=== PATIENT | male | born 1940 | race American Indian/Alaskan Native ===

== ENCOUNTER 2018-11-18 16:39 | Inpatient (IN) | payer MEDICARE ==
[2018-11-18] MEDS ORDERED: NACL 0.9% 1000 ML 1,000 ML IV ONE ×2 (17:34→21:35)
--- NOTE | 2018-11-18 17:37 | Emergency Department Report ---
ED General Adult HPI - General Stated complaint: HYPOTENSION Time Seen by Provider: 11/18/18 17:34 Source: patient, family, EMS Mode of arrival: Stretcher Limitations: No Limitations - History of Present Illness Initial comments: Patient is a 78-year-old male that presents emergency room for low blood pressure. Patient states he was at his eye doctor and his blood pressure was low. Patient states that when the blood pressure slowly felt a little bit weak and had a syncopal episode. Patient states his syncopal episode was brief. Patient states his blood pressure was low but return to normal by the time EMS arrived . Patient denies chest pain shortness of breath. Patient denies any symptoms at this time. Patient denies dizziness. Patient denies blurry vision. Patient denies headache. Patient states his blood pressure at the eye doctor was on recheck was 86/62. -: Sudden Associated Symptoms: syncope, weakness. denies: confusion, chest pain, cough, diaphoresis, fever/chills, headaches, loss of appetite, nausea/vomiting, rash, seizure, shortness of breath - Related Data Allergies Allergy/AdvReac Type Severity Reaction Status Date / Time No Known Allergies Allergy Unverified 11/18/18 18:22 ED Review of Systems ROS: Stated complaint: HYPOTENSION Other details as noted in HPI Constitutional: denies: chills, fever Eyes: denies: eye pain, eye discharge, vision change ENT: denies: ear pain, throat pain Respiratory: denies: cough, shortness of breath, wheezing Cardiovascular: denies: chest pain, palpitations Endocrine: no symptoms reported Gastrointestinal: denies: abdominal pain, nausea, diarrhea Genitourinary: denies: urgency, dysuria Musculoskeletal: denies: back pain, joint swelling, arthralgia Skin: denies: rash, lesions Neurological: weakness. denies: headache, paresthesias Psychiatric: denies: anxiety, depression Hematological/Lymphatic: denies: easy bleeding, easy bruising ED Past Medical Hx - Past Medical History Previous Medical History?: Yes Hx Diabetes: Yes Hx Arthritis: Yes Additional medical history: bph, cataracts - Surgical History Past Surgical History?: No - Family History Family history: no significant - Social History Smoking Status: Never Smoker Substance Use Type: None ED Physical Exam - General Limitations: No Limitations General appearance: alert, in no apparent distress - Head Head exam: Present: atraumatic, normocephalic - Eye Eye exam: Present: normal appearance, PERRL Pupils: Present: normal accommodation - ENT ENT exam: Present: mucous membranes moist - Neck Neck exam: Present: normal inspection - Respiratory Respiratory exam: Present: normal lung sounds bilaterally. Absent: respiratory distress - Cardiovascular Cardiovascular Exam: Present: regular rate, normal rhythm. Absent: systolic murmur, diastolic murmur, rubs, gallop - GI/Abdominal GI/Abdominal exam: Present: soft, normal bowel sounds - Rectal Rectal exam: Present: deferred - Extremities Exam Extremities exam: Present: normal inspection - Back Exam Back exam: Present: normal inspection - Neurological Exam Neurological exam: Present: alert, oriented X3 - Psychiatric Psychiatric exam: Present: normal affect, normal mood - Skin Skin exam: Present: warm, dry, intact, normal color. Absent: rash ED Course Vital Signs 11/18/18 11/18/18 11/18/18 17:17 17:25 17:30 Temperature 98.5 F Pulse Rate 72 74 Respiratory 14 16 Rate Blood Pressure 126/57 126/57 126/57 O2 Sat by Pulse 99 100 98 Oximetry 11/18/18 11/18/18 11/18/18 17:45 18:00 18:16 Temperature Pulse Rate 70 71 80 Respiratory 12 15 19 Rate Blood Pressure 140/61 154/67 154/67 O2 Sat by Pulse 96 97 82 L Oximetry 11/18/18 11/18/18 11/18/18 18:30 18:46 19:00 Temperature Pulse Rate 70 76 74 Respiratory 12 17 14 Rate Blood Pressure 154/67 154/67 142/60 O2 Sat by Pulse 99 99 98 Oximetry 11/18/18 11/18/18 11/18/18 19:15 19:30 20:24 Temperature Pulse Rate 88 81 85 Respiratory 20 11 L 11 L Rate Blood Pressure 134/68 134/68 121/70 O2 Sat by Pulse 97 100 Oximetry 11/18/18 11/18/18 11/18/18 20:30 20:45 21:00 Temperature Pulse Rate 80 81 82 Respiratory 12 16 14 Rate Blood Pressure 167/79 167/71 171/76 O2 Sat by Pulse 97 97 94 Oximetry 11/18/18 11/18/18 11/18/18 21:15 21:30 21:46 Temperature Pulse Rate 84 87 83 Respiratory 14 13 15 Rate Blood Pressure 176/83 169/86 151/71 O2 Sat by Pulse 97 96 94 Oximetry 11/18/18 22:00 Temperature Pulse Rate 87 Respiratory 18 Rate Blood Pressure 157/74 O2 Sat by Pulse 98 Oximetry - Reevaluation(s) Reevaluation #1: Nurses difficulty placing a peripheral IV. Right neck IV placed. See procedure note 11/18/18 19:34 Reevaluation #2: Discussed all results with patient. Patient will be admitted to the hospitalist service. Patient agrees to plan of care. 11/18/18 22:10 - Consultations Consultation #1: Hospitalist consultation for admission. Hospitalist to admit patient. Hospitalist to assume care patient. 11/18/18 22:10 - EJ/Peripheral Line Neck R Time Out Performed: Yes Indications: nurses unable to establis Skin Cleansed in Sterile Fashion: Yes Size: 20 Dressing Placed: Tegaderm, tape Patient Tolerated Procedure: well ED Medical Decision Making - Lab Data Result diagrams: 11/18/18 18:11 11/18/18 18:11 - EKG Data -: EKG Interpreted by Me EKG shows normal: sinus rhythm, axis, intervals, QRS complexes, ST-T waves Rate: normal - Radiology Data Radiology results: report reviewed, image reviewed interpreted by me: Chest x-ray negative. PROCEDURE: CT HEAD/BRAIN WO CON TECHNIQUE: Computerized tomography of the head was performed without contrast material. CT DOSE LENGTH PRODUCT: 1047.9 mGycm HISTORY: syncope COMPARISONS: None . FINDINGS: No CT evidence of intracranial mass, hemorrhage, acute territorial infarction, or hydrocephalus. Intracranial arteries are symmetric in density. There is focal lacunar infarct in the right basal ganglia. Calvarium is intact. Visualized paranasal sinuses and mastoids are aerated. IMPRESSION: No CT evidence of acute abnormality . PROCEDURE: CT ANGIO CHEST TECHNIQUE: Computerized tomographic angiography of the chest was performed after the IV injection of iodinated nonionic contrast including image processing. The image data was postprocessed using 2-dimensional multiplanar reformatted (MPR) and 3-dimensional (MIP and/or volume rendered) techniques. Automated exposure control, adjustment of mA and/or kV according to patient size, or iterative reconstruction dose optimization techniques were utilized. CT DOSE LENGTH PRODUCT: 756.3 mGycm HISTORY: syncope and high d-dimer COMPARISONS: None . FINDINGS: Bilateral pulmonary arteries and their branches demonstrate normal opacification without filling defects. Aorta is of normal caliber without evidence of dissection. Hilar structures are within normal limits. There is no lymphadenopathy. Thyroid Demonstrates normal size and density. Visualized upper abdominal structures are within normal limits. Idiopathic skeletal hyperostosis changes are noted involving the thoracic spine. Vertebral height is normal. Bilateral lungs are free of infiltrates or mass lesions. Pleural spaces are clear. IMPRESSION: No evidence of pulmonary embolism No acute pulmonary process - Medical Decision Making Patient is a 78-year-old male presents emergency room with weakness and syncope and low blood pressure. Patient given fluids in the ER her blood pressure returned to normal. Patient had labs done and it shows acute renal insufficiency as well as elevated troponin and elevated d-dimer. Patient had a CTA due to syncopal episode and elevated d-dimer. CT was negative. Patient had a chest x-ray which was negative. Patient had a head CT which was negative. Patient was admitted to the hospitalist service. - Differential Diagnosis syncope. PE. Weakness. Hypotension. Critical Care Time: Yes Critical care attestation.: If time is entered above; I have spent that time in minutes in the direct care of this critically ill patient, excluding procedure time. Critical Care Time: 45 minutes ED Disposition Clinical Impression: Elevated troponin I level, Elevated d-dimer Syncope Qualifiers: Syncope type: unspecified Qualified Code(s): R55 - Syncope and collapse Hypotension Qualifiers: Hypotension type: unspecified hypotension type Qualified Code(s): I95.9 - Hypotension, unspecified Acute renal failure Qualifiers: Acute renal failure type: unspecified Qualified Code(s): N17.9 - Acute kidney failure, unspecified Disposition: OP ADMIT IP TO THIS HOSP Is pt being admited?: Yes Does the pt Need Aspirin: No Condition: Critical Time of Disposition: 22:10
[2018-11-18 18:40] LABS: Basophils # (Auto) 0.1 K/mm3 (0.0-0.1); Basophils % (Auto) 1.2 % (0.0-1.8); Eosinophils % (Auto) 0.4 % (0.0-4.3); Hematocrit 30.2 % (35.5-45.6); Hemoglobin 10.2 gm/dl (11.8-15.2); Lymphocytes # (Auto) 1.3 K/mm3 (1.2-5.4); Lymphocytes % (Auto) 15.3 % (13.4-35.0); Mean Corpuscular HGB Conc 34 % (32-34); Mean Corpuscular Volume 96 fl (84-94); Monocytes # (Auto) 0.3 K/mm3 (0.0-0.8); Platelet Count 382 K/mm3 (140-440); Red Blood Count 3.15 M/mm3 (3.65-5.03); Red Cell Distribution Width 12.9 % (13.2-15.2)
[2018-11-18 19:04] LABS: Creatine Kinase MB 3.3 ng/mL (0.0-4.0)
[2018-11-18 19:06] LABS: Albumin 3.6 g/dL (3.9-5)
[2018-11-18 19:42] LABS: Chol/HDL Ratio 7.34 %
--- NOTE | 2018-11-18 20:47 | XRay Report ---
PROCEDURE: XR CHEST 1V AP TECHNIQUE: Chest radiograph single view. HISTORY: syncope/ COMPARISONS: None . FINDINGS: Heart: Normal. Mediastinum/Vessels: Normal. Lungs/Pleural space: Normal. Bony thorax: No acute osseous abnormality. Life support devices: None. IMPRESSION: No acute cardiopulmonary abnormality. This document is electronically signed by Abimael Brewster MD., Nov 18 2018 08:45:45 PM ET
--- NOTE | 2018-11-18 21:31 | Cat Scan Report ---
PROCEDURE: CT ANGIO CHEST TECHNIQUE: Computerized tomographic angiography of the chest was performed after the IV injection of iodinated nonionic contrast including image processing. The image data was postprocessed using 2-di mensional multiplanar reformatted (MPR) and 3-dimensional (MIP and/or volume rendered) techniques. Au tomated exposure control, adjustment of mA and/or kV according to patient size, or iterative reconstr uction dose optimization techniques were utilized. CT DOSE LENGTH PRODUCT: 756.3 mGycm HISTORY: syncope and high d-dimer COMPARISONS: None . FINDINGS: Bilateral pulmonary arteries and their branches demonstrate normal opacification without filling defe cts. Aorta is of normal caliber without evidence of dissection. Hilar structures are within normal li mits. There is no lymphadenopathy. Thyroid Demonstrates normal size and density. Visualized upper abdominal structures are within normal limits. Idiopathic skeletal hyperostosis changes are noted involving the thoracic spine. Vertebral h eight is normal. Bilateral lungs are free of infiltrates or mass lesions. Pleural spaces are clear. IMPRESSION: No evidence of pulmonary embolism No acute pulmonary process This document is electronically signed by Abimael Brewster MD., Nov 18 2018 09:29:21 PM ET
[2018-11-18] MEDS ORDERED: NACL 0.9% 1000 ML 1,000 ML ONE (21:32)
[2018-11-18 21:51] LABS: Bilirubin,Urine NEG (Negative); Blood,Urine SM (Negative); Color,Urine Yellow (Yellow); Mucus,Urine FEW /HPF
--- NOTE | 2018-11-18 22:29 | Cat Scan Report ---
PROCEDURE: CT HEAD/BRAIN WO CON TECHNIQUE: Computerized tomography of the head was performed without contrast material. CT DOSE LENGTH PRODUCT: 1047.9 mGycm HISTORY: syncope COMPARISONS: None . FINDINGS: No CT evidence of intracranial mass, hemorrhage, acute territorial infarction, or hydrocephalus. Intr acranial arteries are symmetric in density. There is focal lacunar infarct in the right basal ganglia . Calvarium is intact. Visualized paranasal sinuses and mastoids are aerated. IMPRESSION: No CT evidence of acute abnormality . This document is electronically signed by Mary Frank MD., Nov 18 2018 10:27:48 PM ET
[2018-11-18] MEDS ORDERED: ZOFRAN ONE (22:34)
[2018-11-18] MEDS ORDERED: ZOFRAN IV ONE (22:38)
[2018-11-18] MEDS ORDERED: PERCOCET 5/325 PO PRN (23:14)
[2018-11-18] MEDS ORDERED: SODIUM CHLORIDE FLUSH SYRINGE 10 ML IV PRN (23:14)
[2018-11-18] MEDS ORDERED: TYLENOL PO PRN (23:14)
[2018-11-18] MEDS ORDERED: APRESOLINE IV PRN (23:17)
[2018-11-18] MEDS ORDERED: D50W (25GM) Syringe IV PRN (23:19)
--- NOTE | 2018-11-18 23:40 | History and Physical Report ---
History of Present Illness Date of examination: 11/18/18 Date of admission: 11/18/18 23:14 Chief complaint: Syncope History of present illness: Patient is a 78-year-old -[place]ish male with history of hypertension and DM2 who presented to the ED on account of his syncopal episode. Pt stated that he went for his eye clinic appointment and while he was seated down, it was reported that he passed out. He has positive history of nausea with vomiting 2 episodes. He denied chest pain, palpitation, shortness of breath, cough, fever, chills, sore throat, runny nose or congestion, leg swelling, orthopnea or PND. No abdominal pain, constipation, diarrhea, dysuria or frequency. No headaches or lightheadedness. No known prior history of presenting complaint. Past History Past Medical History: arthritis, diabetes, hypertension, other (BPH, prostate cancer status post prostatectomy and radiation) Past Surgical History: appendectomy, Other (prostatectomy) Social history: no significant social history (he denies tobacco, alcohol or illicit drug use) Family history: other (reviewed and noncontributory to syncope) Medications and Allergies Allergies Allergy/AdvReac Type Severity Reaction Status Date / Time No Known Allergies Allergy Unverified 11/18/18 18:22 Active Meds: Active Medications Acetaminophen (Tylenol) 650 mg PO Q4H PRN PRN Reason: Pain MILD(1-3)/Fever >100.5/SAMANIEGO Amlodipine Besylate (Norvasc) 10 mg PO QDAY [facility] Atorvastatin Calcium (Lipitor) 40 mg PO QHS [facility] Dextrose (D50w (25gm) Syringe) 50 ml IV PRN PRN PRN Reason: Hypoglycemia Docusate Sodium (Colace) 100 mg PO BID [facility] Heparin Sodium (Porcine) (Heparin) 5,000 unit SUB-Q Q12HR [facility] Hydralazine HCl (Apresoline) 75 mg PO Q8HR [facility] Hydralazine HCl (Apresoline) 10 mg IV Q4H PRN PRN Reason: Blood Pressure Sodium Chloride (Nacl 0.9% 1000 Ml) 1,000 mls @ 100 mls/hr IV DIRECT [facility] Insulin Glargine (Lantus) 15 units SUB-Q DAILY [facility] Insulin Human Lispro (Humalog) 0 unit SUB-Q ACHS [facility]; Protocol Ondansetron HCl (Zofran) 4 mg IV Q8H PRN PRN Reason: Nausea And Vomiting Oxycodone/Acetaminophen (Percocet 5/325) 1 tab PO Q6H PRN PRN Reason: Pain, Moderate (4-6) Sodium Chloride (Sodium Chloride Flush Syringe 10 Ml) 10 ml IV BID [facility] Sodium Chloride (Sodium Chloride Flush Syringe 10 Ml) 10 ml IV PRN PRN PRN Reason: LINE FLUSH Review of Systems All systems: negative (except as documented in the HPI, 14 point system reviewed were negative) Exam - Constitutional Vitals: Temp Pulse Resp BP Pulse Ox 98.5 F 87 18 157/74 98 11/18/18 17:25 11/18/18 22:00 11/18/18 22:00 11/18/18 22:00 11/18/18 22:00 General appearance: Present: no acute distress - EENT Eyes: Present: PERRL, EOM intact ENT: hearing intact, clear oral mucosa - Neck Neck: Present: supple, normal ROM - Respiratory Respiratory effort: normal Respiratory: bilateral: CTA - Cardiovascular Rhythm: regular Heart Sounds: Present: S1 & S2 - Extremities Extremities: pulses symmetrical, No edema - Abdominal General gastrointestinal: Present: soft, non-tender, normal bowel sounds Male genitourinary: Present: deferred - Integumentary Integumentary: Present: clear, warm, dry - Musculoskeletal Musculoskeletal: strength equal bilaterally - Psychiatric Psychiatric: appropriate mood/affect, intact judgment & insight - Neurologic Neurologic: CNII-XII intact Results - Labs CBC & Chem 7: 11/18/18 18:11 11/18/18 18:11 Labs: Laboratory Last Values WBC 8.6 K/mm3 (4.5-11.0) 11/18/18 18:11 RBC 3.15 M/mm3 (3.65-5.03) L 11/18/18 18:11 Hgb 10.2 gm/dl (11.8-15.2) L 11/18/18 18:11 Hct 30.2 % (35.5-45.6) L 11/18/18 18:11 MCV 96 fl (84-94) H 11/18/18 18:11 MCH 32 pg (28-32) 11/18/18 18:11 MCHC 34 % (32-34) 11/18/18 18:11 RDW 12.9 % (13.2-15.2) L 11/18/18 18:11 Plt Count 382 K/mm3 (140-440) 11/18/18 18:11 Lymph % (Auto) 15.3 % (13.4-35.0) 11/18/18 18:11 [place] % (Auto) 4.0 % (0.0-7.3) 11/18/18 18:11 Eos % (Auto) 0.4 % (0.0-4.3) 11/18/18 18:11 Baso % (Auto) 1.2 % (0.0-1.8) 11/18/18 18:11 Lymph # 1.3 K/mm3 (1.2-5.4) 11/18/18 18:11 [place] # 0.3 K/mm3 (0.0-0.8) 11/18/18 18:11 Eos # 0.0 K/mm3 (0.0-0.4) 11/18/18 18:11 Baso # 0.1 K/mm3 (0.0-0.1) 11/18/18 18:11 Seg Neutrophils % 79.1 % (40.0-70.0) H 11/18/18 18:11 Seg Neutrophils # 6.8 K/mm3 (1.8-7.7) 11/18/18 18:11 456.98 ng/mlDDU (0-234) H 11/18/18 18:11 Sodium 140 mmol/L (137-145) 11/18/18 18:11 Potassium 4.8 mmol/L (3.6-5.0) 11/18/18 18:11 Chloride 103.2 mmol/L (98-107) 11/18/18 18:11 Carbon Dioxide 21 mmol/L (22-30) L 11/18/18 18:11 21 mmol/L 11/18/18 18:11 BUN 24 mg/dL (9-20) H 11/18/18 18:11 1.7 mg/dL (0.8-1.5) H 11/18/18 18:11 Estimated GFR 39 ml/min 11/18/18 18:11 14 % 11/18/18 18:11 Glucose 201 mg/dL (75-100) H 11/18/18 18:11 Calcium 9.0 mg/dL (8.4-10.2) 11/18/18 18:11 0.40 mg/dL (0.1-1.2) 11/18/18 18:11 AST 11 units/L (5-40) 11/18/18 18:11 ALT 11 units/L (7-56) 11/18/18 18:11 48 units/L (35-129) 11/18/18 18:11 112 units/L (55-170) 11/18/18 18:11 CK-MB (CK-2) 3.3 ng/mL (0.0-4.0) 11/18/18 18:11 CK-MB (CK-2) Rel Index 2.9 (0-4) 11/18/18 18:11 0.081 ng/mL (0.00-0.029) H 11/18/18 18:11 7.4 g/dL (6.3-8.2) 11/18/18 18:11 3.6 g/dL (3.9-5) L 11/18/18 18:11 0.9 % 11/18/18 18:11 Triglycerides 157 mg/dL (2-149) H 11/18/18 18:11 Cholesterol 235 mg/dL (50-199) H 11/18/18 18:11 187 mg/dL (50-130) H 11/18/18 18:11 32 mg/dL (40-59) L 11/18/18 18:11 7.34 % 11/18/18 18:11 Yellow (Yellow) 11/18/18 20:54 Clear (Clear) 11/18/18 20:54 6.0 (5.0-7.0) 11/18/18 20:54 Ur Specific [place] 1.016 (1.003-1.030) 11/18/18 20:54 100 mg/dl mg/dL (Negative) 11/18/18 20:54 Neg mg/dL (Negative) 11/18/18 20:54 Neg mg/dL (Negative) 11/18/18 20:54 Sm (Negative) 11/18/18 20:54 Neg (Negative) 11/18/18 20:54 Neg (Negative) 11/18/18 20:54 2.0 mg/dL (<2.0) 11/18/18 20:54 Ur Leukocyte Esterase Neg (Negative) 11/18/18 20:54 3.0 /HPF (0.0-6.0) 11/18/18 20:54 2.0 /HPF (0.0-6.0) 11/18/18 20:54 U Epithel Cells (Auto) 3.0 /HPF (0-13.0) 11/18/18 20:54 Few /HPF 11/18/18 20:54 Assessment and Plan Assessment and plan: Syncope -Probably vasovagal -CT head negative -Further investigative testing with carotid duplex and echocardiogram [place] -Probably vasomotor nephropathy -On IV fluid, will monitor creatinine level Elevated troponin -Probably demand ischemia due to the [place] -We'll continue serial troponin level monitoring -Consider stress test before discharge after renal function improves Hypertensive urgency -On antihypertensives, adjust as needed Metabolic acidosis -Likely secondary to the renal impairment -On IV fluid, will monitor Elevated d-dimer -CTA chest negative for acute PE DM2 with hyperglycemia -On SSI and Lantus Dyslipidemia -On statin DVT prophylaxis with heparin Disposition: For discharge when medically stable Time spent: 38 minutes
[2018-11-19] MEDS ORDERED: APRESOLINE ONE ×2 (00:04→00:05)
[2018-11-19] MEDS ORDERED: NORVASC ONE (00:04)
[2018-11-19] MEDS: APRESOLINE PO SCH ×4 (00:06→21:46)
[2018-11-19] MEDS: NORVASC PO SCH ×2 (00:06→09:56)
[2018-11-19] MEDS: ZOFRAN IV PRN (05:19)
[2018-11-19 05:51] LABS: Calcium 8.4 mg/dL (8.4-10.2)
[2018-11-19] MEDS: HumaLOG SUB-Q SCH ×4 (09:54→22:48)
[2018-11-19] MEDS: LANTUS SUB-Q SCH (10:01)
[2018-11-19] MEDS: HEPARIN SUB-Q SCH ×2 (10:02→21:47)
[2018-11-19] MEDS: ASPIRIN PO SCH (10:02)
[2018-11-19] MEDS: COLACE PO SCH ×2 (10:02→21:46)
[2018-11-19] MEDS: SODIUM CHLORIDE FLUSH SYRINGE 10 ML IV SCH ×2 (10:08→21:47)
--- NOTE | 2018-11-19 10:36 | Vascular Lab Report ---
PROCEDURE: VL CAROTID DUPLEX LT TECHNIQUE: Duplex Doppler ultrasound of the common, internal and external carotid arteries and the v ertebral arteries was performed bilaterally. Silverio scale imaging, velocity spectral waveform analysis, and color flow Doppler were employed. HISTORY: syncope COMPARISONS: None . Note: Measurement of carotid stenosis is based on flow velocity values that correlate with the [place] Symptomatic Carotid Endarterectomy Trial (NASCET) based stenosis criteria using the internal carotid artery diameter as the denominator for stenosis calculation. FINDINGS: RIGHT carotid artery and vertebral artery: Cannot be visualized due to line placement and overlying d ressings. LEFT carotid artery: Velocities: ICA PSV: 122 cm/sec ICA End diastolic: 36 cm/sec CCA PSV: 102 cm/sec IC/CC ratio: 1. 19 Plaque/color flow: Mild heterogeneous plaque without significant spectral broadening or abnormal col or flow . LEFT vertebral artery: Antegrade systolic and diastolic flow IMPRESSION: 1. RIGHT carotid: Nonvisualized due to overlying line and dressings. 2. LEFT carotid: No hemodynamically significant (less than 50 percent) internal carotid artery sten osis. 3. Left vertebral artery: Antegrade. This document is electronically signed by Shelby Guzman MD., Nov 19 2018 10:33:46 AM ET
--- NOTE | 2018-11-19 12:02 | Consultation ---
History of Present Illness Consult date: 11/19/18 Consult reason: syncope History of present illness: Patient is a 78 year old with a history of hypertension, diabetes, admitted with syncope thought secondary to hypotension. It's reported he had a blood pressure of 85/60 at his doctor's office. It is not clear if his blood glucose was measured. There were not report of chest pain, unusual shortness of breath or palpitations. Initial labs revealed acute renal failure, dehydration, creatinine of 1.7. Troponins are mildly elevated. Patient given fluids in the ER her blood pressure returned to normal. A chest CTA was negative for PE and he also had a chest x- ray which was negative. Head CT did not show any acute intracranial abnormalities. His ECG is benign, a normal sinus rhythm. Past History Past Medical History: arthritis, diabetes, hypertension, other (BPH, prostate cancer status post prostatectomy and radiation) Past Surgical History: appendectomy, Other (prostatectomy) Social history: no significant social history (he denies tobacco, alcohol or illicit drug use) Family history: other (reviewed and noncontributory to syncope) Medications and Allergies Allergies Allergy/AdvReac Type Severity Reaction Status Date / Time No Known Allergies Allergy Unverified 11/18/18 18:22 Active Meds: Active Medications Acetaminophen (Tylenol) 650 mg PO Q4H PRN PRN Reason: Pain MILD(1-3)/Fever >100.5/SAMANIEGO Amlodipine Besylate (Norvasc) 10 mg PO QDAY [facility] Last Admin: 11/19/18 09:56 Dose: Not Given Documented by: Aspirin (Aspirin) 325 mg PO QDAY [facility] Last Admin: 11/19/18 10:02 Dose: 325 mg Documented by: Atorvastatin Calcium (Lipitor) 40 mg PO QHS [facility] Dextrose (D50w (25gm) Syringe) 50 ml IV PRN PRN PRN Reason: Hypoglycemia Docusate Sodium (Colace) 100 mg PO BID [facility] Last Admin: 11/19/18 10:02 Dose: 100 mg Documented by: Heparin Sodium (Porcine) (Heparin) 5,000 unit SUB-Q Q12HR [facility] Last Admin: 11/19/18 10:02 Dose: 5,000 unit Documented by: Hydralazine HCl (Apresoline) 75 mg PO Q8HR [facility] Last Admin: 11/19/18 06:09 Dose: 75 mg Documented by: Hydralazine HCl (Apresoline) 10 mg IV Q4H PRN PRN Reason: Blood Pressure Sodium Chloride (Nacl 0.9% 1000 Ml) 1,000 mls @ 100 mls/hr IV DIRECT [facility] Insulin Glargine (Lantus) 15 units SUB-Q DAILY [facility] Last Admin: 11/19/18 10:01 Dose: 15 units Documented by: Insulin Human Lispro (Humalog) 0 unit SUB-Q ACHS [facility]; Protocol Last Admin: 11/19/18 09:54 Dose: 3 unit Documented by: Ondansetron HCl (Zofran) 4 mg IV Q8H PRN PRN Reason: Nausea And Vomiting Last Admin: 11/19/18 05:19 Dose: 4 mg Documented by: Oxycodone/Acetaminophen (Percocet 5/325) 1 tab PO Q6H PRN PRN Reason: Pain, Moderate (4-6) Sodium Chloride (Sodium Chloride Flush Syringe 10 Ml) 10 ml IV BID [facility] Last Admin: 11/19/18 10:08 Dose: 10 ml Documented by: Sodium Chloride (Sodium Chloride Flush Syringe 10 Ml) 10 ml IV PRN PRN PRN Reason: LINE FLUSH Physical Examination Vital Signs BP Pulse Ox 126/57 99 11/18/18 17:17 11/18/18 17:17 General appearance: no acute distress Cardiac: Positive: Reg Rate and Rhythm Results 11/18/18 18:11 11/19/18 05:04 Cardiac Enzymes 11/18/18 11/18/18 Range/Units 18:11 18:11 AST 11 (5-40) units/L CK-MB (CK-2) 3.3 (0.0-4.0) ng/mL Lipids 11/18/18 Range/Units 18:11 Triglycerides 157 H (2-149) mg/dL Cholesterol 235 H (50-199) mg/dL HDL Cholesterol 32 L (40-59) mg/dL Cholesterol/HDL Ratio 7.34 % CBC 11/18/18 Range/Units 18:11 WBC 8.6 (4.5-11.0) K/mm3 RBC 3.15 L (3.65-5.03) M/mm3 Hgb 10.2 L (11.8-15.2) gm/dl Hct 30.2 L (35.5-45.6) % Plt Count 382 (140-440) K/mm3 Lymph # 1.3 (1.2-5.4) K/mm3 [place] # 0.3 (0.0-0.8) K/mm3 Eos # 0.0 (0.0-0.4) K/mm3 Baso # 0.1 (0.0-0.1) K/mm3 Comprehensive Metabolic Panel 11/18/18 11/19/18 Range/Units 18:11 05:04 Sodium 140 140 (137-145) mmol/L Potassium 4.8 4.3 (3.6-5.0) mmol/L Chloride 103.2 103.3 (98-107) mmol/L Carbon Dioxide 21 L 22 (22-30) mmol/L BUN 24 H 20 (9-20) mg/dL Creatinine 1.7 H 1.5 (0.8-1.5) mg/dL Glucose 201 H 188 H (75-100) mg/dL Calcium 9.0 8.4 (8.4-10.2) mg/dL AST 11 (5-40) units/L ALT 11 (7-56) units/L Alkaline Phosphatase 48 (35-129) units/L Total Protein 7.4 (6.3-8.2) g/dL Albumin 3.6 L (3.9-5) g/dL Assessment and Plan Syncope thought secondary to hypotension Acute renal failure/dehydration Hypertension Diabetes We will obtain an echocardiogram for LVEF assessment.
--- NOTE | 2018-11-19 13:14 | Progress Note ---
Assessment and Plan Assessment and plan: Syncope -CT head negative -Further investigative testing with carotid duplex and echocardiogram -Orthostatic vitals [place] -Improving -Probably vasomotor nephropathy -On IV fluid, will monitor creatinine level Elevated troponin -Probably demand ischemia due to the [place] -We'll continue serial troponin level monitoring -Consult cardiology Hypertensive urgency -On antihypertensives, adjust as needed Metabolic acidosis -Likely secondary to the renal impairment -On IV fluid, will monitor Elevated d-dimer -CTA chest negative for acute PE DM2 with hyperglycemia -On SSI and Lantus Dyslipidemia -On statin DVT prophylaxis with heparin History Interval history: Syncope Dizziness Hospitalist Physical - Physical exam Narrative exam: Gen: Not in acute distress, lying in bed, HEENT: Normocephalic, atraumatic Neck: supple, no JVD Heart: S1 and S2 reg, no murmurs, rubs or gallop Lungs: Clear, no crackles, no wheeze Abd: soft, non tender, non distended, normal BS Ext: No edema, no clubbing, no cyanosis, Neuro: Awake,alert, oriented x 3, moves all ext, non focal Psych:Normal mood - Constitutional Vitals: Temp Pulse Resp BP Pulse Ox 98.5 F 88 13 101/44 96 11/18/18 17:25 11/19/18 09:56 11/19/18 02:00 11/19/18 09:56 11/19/18 02:00 Results - Labs CBC & Chem 7: 11/18/18 18:11 11/19/18 05:04 Labs: Laboratory Last Values WBC 8.6 K/mm3 (4.5-11.0) 11/18/18 18:11 RBC 3.15 M/mm3 (3.65-5.03) L 11/18/18 18:11 Hgb 10.2 gm/dl (11.8-15.2) L 11/18/18 18:11 Hct 30.2 % (35.5-45.6) L 11/18/18 18:11 MCV 96 fl (84-94) H 11/18/18 18:11 MCH 32 pg (28-32) 11/18/18 18:11 MCHC 34 % (32-34) 11/18/18 18:11 RDW 12.9 % (13.2-15.2) L 11/18/18 18:11 Plt Count 382 K/mm3 (140-440) 11/18/18 18:11 Lymph % (Auto) 15.3 % (13.4-35.0) 11/18/18 18:11 Meagher % (Auto) 4.0 % (0.0-7.3) 11/18/18 18:11 Eos % (Auto) 0.4 % (0.0-4.3) 11/18/18 18:11 Baso % (Auto) 1.2 % (0.0-1.8) 11/18/18 18:11 Lymph # 1.3 K/mm3 (1.2-5.4) 11/18/18 18:11 Meagher # 0.3 K/mm3 (0.0-0.8) 11/18/18 18:11 Eos # 0.0 K/mm3 (0.0-0.4) 11/18/18 18:11 Baso # 0.1 K/mm3 (0.0-0.1) 11/18/18 18:11 Seg Neutrophils % 79.1 % (40.0-70.0) H 11/18/18 18:11 Seg Neutrophils # 6.8 K/mm3 (1.8-7.7) 11/18/18 18:11 456.98 ng/mlDDU (0-234) H 11/18/18 18:11 Sodium 140 mmol/L (137-145) 11/19/18 05:04 Potassium 4.3 mmol/L (3.6-5.0) 11/19/18 05:04 Chloride 103.3 mmol/L (98-107) 11/19/18 05:04 Carbon Dioxide 22 mmol/L (22-30) 11/19/18 05:04 19 mmol/L 11/19/18 05:04 BUN 20 mg/dL (9-20) 11/19/18 05:04 1.5 mg/dL (0.8-1.5) 11/19/18 05:04 Estimated GFR 55 ml/min 11/19/18 05:04 13 % 11/19/18 05:04 Glucose 188 mg/dL (75-100) H 11/19/18 05:04 POC Glucose 210 (70-105) H 11/19/18 12:10 Calcium 8.4 mg/dL (8.4-10.2) 11/19/18 05:04 0.40 mg/dL (0.1-1.2) 11/18/18 18:11 AST 11 units/L (5-40) 11/18/18 18:11 ALT 11 units/L (7-56) 11/18/18 18:11 48 units/L (35-129) 11/18/18 18:11 112 units/L (55-170) 11/18/18 18:11 CK-MB (CK-2) 3.3 ng/mL (0.0-4.0) 11/18/18 18:11 CK-MB (CK-2) Rel Index 2.9 (0-4) 11/18/18 18:11 0.070 ng/mL (0.00-0.029) H 11/19/18 05:04 7.4 g/dL (6.3-8.2) 11/18/18 18:11 3.6 g/dL (3.9-5) L 11/18/18 18:11 0.9 % 11/18/18 18:11 Triglycerides 157 mg/dL (2-149) H 11/18/18 18:11 Cholesterol 235 mg/dL (50-199) H 11/18/18 18:11 187 mg/dL (50-130) H 11/18/18 18:11 32 mg/dL (40-59) L 11/18/18 18:11 7.34 % 11/18/18 18:11 Yellow (Yellow) 11/18/18 20:54 Clear (Clear) 11/18/18 20:54 6.0 (5.0-7.0) 11/18/18 20:54 Ur Specific [place] 1.016 (1.003-1.030) 11/18/18 20:54 100 mg/dl mg/dL (Negative) 11/18/18 20:54 Neg mg/dL (Negative) 11/18/18 20:54 Neg mg/dL (Negative) 11/18/18 20:54 Sm (Negative) 11/18/18 20:54 Neg (Negative) 11/18/18 20:54 Neg (Negative) 11/18/18 20:54 2.0 mg/dL (<2.0) 11/18/18 20:54 Ur Leukocyte Esterase Neg (Negative) 11/18/18 20:54 3.0 /HPF (0.0-6.0) 11/18/18 20:54 2.0 /HPF (0.0-6.0) 11/18/18 20:54 U Epithel Cells (Auto) 3.0 /HPF (0-13.0) 11/18/18 20:54 Few /HPF 11/18/18 20:54 Active Medications - Current Medications Current Medications: Generic Name Dose Route Start Last Admin Trade Name Freq PRN Reason Stop Dose Admin Acetaminophen 650 mg 11/18/18 23:14 Tylenol PO Q4H PRN Pain MILD(1-3)/Fever >100.5/SAMANIEGO Amlodipine Besylate 10 mg 11/18/18 23:17 11/19/18 09:56 Norvasc PO Not Given QDAY PATRICK Aspirin 325 mg 11/19/18 10:00 11/19/18 10:02 Aspirin PO 325 mg QDAY PATRICK Administration Atorvastatin Calcium 40 mg 11/19/18 22:00 Lipitor PO QHS PATRICK Dextrose 50 ml 11/18/18 23:19 D50w (25gm) Syringe IV PRN PRN Hypoglycemia Docusate Sodium 100 mg 11/19/18 10:00 11/19/18 10:02 Colace PO 100 mg BID PATRICK Administration Heparin Sodium (Porcine) 5,000 unit 11/19/18 10:00 11/19/18 10:02 Heparin SUB-Q 5,000 unit Q12HR PATRICK Administration Hydralazine HCl 75 mg 11/18/18 23:45 11/19/18 06:09 Apresoline PO 75 mg Q8HR PATRICK Administration Hydralazine HCl 10 mg 11/18/18 23:17 Apresoline IV Q4H PRN Blood Pressure Sodium Chloride 1,000 mls @ 100 mls/hr 11/18/18 23:45 Nacl 0.9% 1000 Ml IV DIRECT PATRICK Insulin Glargine 15 units 11/19/18 10:00 11/19/18 10:01 Lantus SUB-Q 15 units DAILY PATRICK Administration Insulin Human Lispro 0 unit 11/19/18 07:30 11/19/18 12:48 Humalog SUB-Q 3 unit ACHS PATRICK Administration Protocol Ondansetron HCl 4 mg 11/18/18 23:14 11/19/18 05:19 Zofran IV 4 mg Q8H PRN Administration Nausea And Vomiting Oxycodone/Acetaminophen 1 tab 11/18/18 23:14 Percocet 5/325 PO Q6H PRN Pain, Moderate (4-6) Sodium Chloride 10 ml 11/19/18 10:00 11/19/18 10:08 Sodium Chloride Flush Syringe 10 Ml IV 10 ml BID PATRICK Administration Sodium Chloride 10 ml 11/18/18 23:14 Sodium Chloride Flush Syringe 10 Ml IV PRN PRN LINE FLUSH
[2018-11-20] MEDS: APRESOLINE PO SCH ×3 (06:26→21:47)
[2018-11-20] MEDS: MIRALAX 3350 PO PRN (06:26)
[2018-11-20 07:22] LABS: Calcium 8.3 mg/dL (8.4-10.2)
[2018-11-20] MEDS: HumaLOG SUB-Q SCH ×4 (08:04→22:36)
[2018-11-20] MEDS: COLACE PO SCH ×2 (09:36→21:47)
[2018-11-20] MEDS: ASPIRIN PO SCH (09:36)
[2018-11-20] MEDS: HEPARIN SUB-Q SCH ×2 (09:36→21:50)
[2018-11-20] MEDS: LANTUS SUB-Q SCH (09:36)
[2018-11-20] MEDS: SODIUM CHLORIDE FLUSH SYRINGE 10 ML IV SCH ×2 (09:37→21:55)
[2018-11-20] MEDS: NORVASC PO SCH (09:38)
--- NOTE | 2018-11-20 10:13 | Progress Note ---
Assessment and Plan Syncope thought secondary to hypotension. Patient reports his amlodipine was recently increased from 5mg to 10mg daily. Acute renal failure/dehydration Hypertension Diabetes An echocardiogram reports a normal left ventricular systolic function, ejection fraction 55-60%. Further cardiac evaluation with an elective stress thallium test will be obtained as an outpatient. Subjective Date of service: 11/20/18 Interval history: Patient has no complaints. He denies chest pain, shortness of breath, palpitations and dizziness. Objective Vital Signs Temp Pulse Pulse Resp BP Pulse Ox 11/20/18 09:38 82 97/53 11/20/18 08:42 68 20 97 11/20/18 07:44 98.9 F 68 20 135/70 97 11/20/18 06:26 64 125/62 11/20/18 03:02 90/42 11/20/18 02:49 97.8 F 72 20 113/60 100 11/20/18 01:00 71 20 100 11/19/18 22:00 72 11/19/18 21:46 73 126/55 11/19/18 20:18 98.2 F 70 20 125/58 100 11/19/18 16:21 90/42 11/19/18 16:20 86/46 11/19/18 16:18 98.5 F 71 20 120/68 99 11/19/18 13:53 88 93 - Physical Examination General: No Apparent Distress HEENT: Positive: PERRL Neck: Positive: trachea midline Cardiac: Positive: Reg Rate and Rhythm Lungs: Positive: Decreased Breath Sounds Neuro: Positive: Grossly Intact - Labs and Meds Comprehensive Metabolic Panel 11/20/18 Range/Units 05:50 Sodium 142 (137-145) mmol/L Potassium 4.2 (3.6-5.0) mmol/L Chloride 106.5 (98-107) mmol/L Carbon Dioxide 24 (22-30) mmol/L BUN 17 (9-20) mg/dL Creatinine 1.6 H (0.8-1.5) mg/dL Glucose 128 H (75-100) mg/dL Calcium 8.3 L (8.4-10.2) mg/dL
--- NOTE | 2018-11-20 11:24 | Progress Note ---
Assessment and Plan Assessment and plan: Syncope - due to Orthostasis -CT head negative -Further investigative testing with carotid duplex and echocardiogram -Orthostatic vitals abnormal continue iv fluids [place] -Improving -Probably vasomotor nephropathy -On IV fluid, will monitor creatinine level Dehydration iv fluids Elevated troponin -Probably demand ischemia due to the [place] -We'll continue serial troponin level monitoring -Consult cardiology Hypertensive urgency -On antihypertensives, adjust as needed Metabolic acidosis -Likely secondary to the renal impairment -On IV fluid, will monitor Elevated d-dimer -CTA chest negative for acute PE DM2 with hyperglycemia -On SSI and Lantus Dyslipidemia -On statin DVT prophylaxis with heparin History Interval history: Syncope Dizziness Hospitalist Physical - Physical exam Narrative exam: Gen: Not in acute distress, lying in bed, HEENT: Normocephalic, atraumatic Neck: supple, no JVD Heart: S1 and S2 reg, no murmurs, rubs or gallop Lungs: Clear, no crackles, no wheeze Abd: soft, non tender, non distended, normal BS Ext: No edema, no clubbing, no cyanosis, Neuro: Awake,alert, oriented x 3, moves all ext, non focal Psych:Normal mood - Constitutional Vitals: Temp Pulse Resp BP Pulse Ox 98.9 F 65 20 97/53 97 11/20/18 07:44 11/20/18 10:00 11/20/18 10:00 11/20/18 09:38 11/20/18 10:00 General appearance: Present: no acute distress Results - Labs CBC & Chem 7: 11/18/18 18:11 11/20/18 05:50 Labs: Laboratory Last Values WBC 8.6 K/mm3 (4.5-11.0) 11/18/18 18:11 RBC 3.15 M/mm3 (3.65-5.03) L 11/18/18 18:11 Hgb 10.2 gm/dl (11.8-15.2) L 11/18/18 18:11 Hct 30.2 % (35.5-45.6) L 11/18/18 18:11 MCV 96 fl (84-94) H 11/18/18 18:11 MCH 32 pg (28-32) 11/18/18 18:11 MCHC 34 % (32-34) 11/18/18 18:11 RDW 12.9 % (13.2-15.2) L 11/18/18 18:11 Plt Count 382 K/mm3 (140-440) 11/18/18 18:11 Lymph % (Auto) 15.3 % (13.4-35.0) 11/18/18 18:11 [place] % (Auto) 4.0 % (0.0-7.3) 11/18/18 18:11 Eos % (Auto) 0.4 % (0.0-4.3) 11/18/18 18:11 Baso % (Auto) 1.2 % (0.0-1.8) 11/18/18 18:11 Lymph # 1.3 K/mm3 (1.2-5.4) 11/18/18 18:11 [place] # 0.3 K/mm3 (0.0-0.8) 11/18/18 18:11 Eos # 0.0 K/mm3 (0.0-0.4) 11/18/18 18:11 Baso # 0.1 K/mm3 (0.0-0.1) 11/18/18 18:11 Seg Neutrophils % 79.1 % (40.0-70.0) H 11/18/18 18:11 Seg Neutrophils # 6.8 K/mm3 (1.8-7.7) 11/18/18 18:11 456.98 ng/mlDDU (0-234) H 11/18/18 18:11 Sodium 142 mmol/L (137-145) 11/20/18 05:50 Potassium 4.2 mmol/L (3.6-5.0) 11/20/18 05:50 Chloride 106.5 mmol/L (98-107) 11/20/18 05:50 Carbon Dioxide 24 mmol/L (22-30) 11/20/18 05:50 16 mmol/L 11/20/18 05:50 BUN 17 mg/dL (9-20) 11/20/18 05:50 1.6 mg/dL (0.8-1.5) H 11/20/18 05:50 Estimated GFR 51 ml/min 11/20/18 05:50 11 % 11/20/18 05:50 Glucose 128 mg/dL (75-100) H 11/20/18 05:50 POC Glucose 181 (70-105) H 11/20/18 09:36 Calcium 8.3 mg/dL (8.4-10.2) L 11/20/18 05:50 0.40 mg/dL (0.1-1.2) 11/18/18 18:11 AST 11 units/L (5-40) 11/18/18 18:11 ALT 11 units/L (7-56) 11/18/18 18:11 48 units/L (35-129) 11/18/18 18:11 112 units/L (55-170) 11/18/18 18:11 CK-MB (CK-2) 3.3 ng/mL (0.0-4.0) 11/18/18 18:11 CK-MB (CK-2) Rel Index 2.9 (0-4) 11/18/18 18:11 0.070 ng/mL (0.00-0.029) H 11/19/18 05:04 7.4 g/dL (6.3-8.2) 11/18/18 18:11 3.6 g/dL (3.9-5) L 11/18/18 18:11 0.9 % 11/18/18 18:11 Triglycerides 157 mg/dL (2-149) H 11/18/18 18:11 Cholesterol 235 mg/dL (50-199) H 11/18/18 18:11 187 mg/dL (50-130) H 11/18/18 18:11 32 mg/dL (40-59) L 11/18/18 18:11 7.34 % 11/18/18 18:11 Yellow (Yellow) 11/18/18 20:54 Clear (Clear) 11/18/18 20:54 6.0 (5.0-7.0) 11/18/18 20:54 Ur Specific [place] 1.016 (1.003-1.030) 11/18/18 20:54 100 mg/dl mg/dL (Negative) 11/18/18 20:54 Neg mg/dL (Negative) 11/18/18 20:54 Neg mg/dL (Negative) 11/18/18 20:54 Sm (Negative) 11/18/18 20:54 Neg (Negative) 11/18/18 20:54 Neg (Negative) 11/18/18 20:54 2.0 mg/dL (<2.0) 11/18/18 20:54 Ur Leukocyte Esterase Neg (Negative) 11/18/18 20:54 3.0 /HPF (0.0-6.0) 11/18/18 20:54 2.0 /HPF (0.0-6.0) 11/18/18 20:54 U Epithel Cells (Auto) 3.0 /HPF (0-13.0) 11/18/18 20:54 Few /HPF 11/18/18 20:54 Active Medications - Current Medications Current Medications: Generic Name Dose Route Start Last Admin Trade Name Freq PRN Reason Stop Dose Admin Acetaminophen 650 mg 11/18/18 23:14 11/20/18 00:40 Tylenol PO 650 mg Q4H PRN Administration Pain MILD(1-3)/Fever >100.5/SAMANIEGO Amlodipine Besylate 10 mg 11/18/18 23:17 11/20/18 09:38 Norvasc PO Not Given QDAY PATRICK Aspirin 325 mg 11/19/18 10:00 11/20/18 09:36 Aspirin PO 325 mg QDAY PATRICK Administration Atorvastatin Calcium 40 mg 11/19/18 22:00 11/19/18 21:46 Lipitor PO 40 mg QHS PATRICK Administration Dextrose 50 ml 11/18/18 23:19 D50w (25gm) Syringe IV PRN PRN Hypoglycemia Docusate Sodium 100 mg 11/19/18 10:00 11/20/18 09:36 Colace PO 100 mg BID PATRICK Administration Heparin Sodium (Porcine) 5,000 unit 11/19/18 10:00 11/20/18 09:36 Heparin SUB-Q 5,000 unit Q12HR PATRICK Administration Hydralazine HCl 75 mg 11/18/18 23:45 11/20/18 06:26 Apresoline PO 75 mg Q8HR PATRICK Administration Hydralazine HCl 10 mg 11/18/18 23:17 Apresoline IV Q4H PRN Blood Pressure Sodium Chloride 1,000 mls @ 100 mls/hr 11/18/18 23:45 Nacl 0.9% 1000 Ml IV DIRECT PATRICK Insulin Glargine 15 units 11/19/18 10:00 11/20/18 09:36 Lantus SUB-Q 15 units DAILY PATRICK Administration Insulin Human Lispro 0 unit 11/19/18 07:30 11/20/18 08:04 Humalog SUB-Q Not Given ACHS [facility] Protocol Magnesium Hydroxide 30 ml 11/19/18 23:28 Milk Of Magnesia PO QDAY PRN Constipation Ondansetron HCl 4 mg 11/18/18 23:14 11/19/18 05:19 Zofran IV 4 mg Q8H PRN Administration Nausea And Vomiting Oxycodone/Acetaminophen 1 tab 11/18/18 23:14 Percocet 5/325 PO Q6H PRN Pain, Moderate (4-6) Polyethylene Glycol 17 gm 11/19/18 23:28 11/20/18 06:26 Miralax 3350 PO 17 gm QDAY PRN Administration Constipation Sodium Chloride 10 ml 11/19/18 10:00 11/20/18 09:37 Sodium Chloride Flush Syringe 10 Ml IV 10 ml BID PATRICK Administration Sodium Chloride 10 ml 11/18/18 23:14 Sodium Chloride Flush Syringe 10 Ml IV PRN PRN LINE FLUSH Nutrition/Malnutrition Assess - Dietary Evaluation Nutrition/Malnutrition Findings: Nutrition Notes Start: 11/19/18 16:54 Freq: Status: Active Protocol: Document 11/19/18 16:54 RM (Rec: 11/19/18 17:02 RM [id number]) Nutrition Notes Need for Assessment generated from: MST Initial or Follow up Assessment Current Diagnosis Acute Kidney Injury,Diabetes, Hypertension Other Pertinent Diagnosis Dyslipidemia Current Diet Consistent CHO Labs/Tests Reviewed Pertinent Medications Reviewed Height 6 ft Weight 92.8 kg Usual Body Weight 96.82 kg [place] Body Weight (kg) 80.90 BMI 27.7 Weight change and time frame 4.15% wt loss X 3 weeks Subjective/Other Information Screened for malnutrition. 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 Stated that he ate 1/3 of his breakfast this morning. Admitted to vomiting once. Stated UBW was 213 lbs 3 weeks ago. No temporal or orbital wasting . Percent of energy/protein needs met: 32%/32% Burn Absent Trauma Absent #1 Nutrition Diagnosis Inadequate oral intake Etiology decreased appetite As Evidenced by Signs and Symptoms pt statement that he ate 1/3 of his breakfast Is patient on ventilator? No Is Patient Ambulatory and/or Out of Bed Yes REE-([facility]-ambulatory/OOB) [ 2204.800 [id number]] Calculation Used for Recommendations [place]- [place] Additional Notes Protein Needs: 93-111g (1-1.2g /kg) Fluid Needs: 1 ml/kcal Nutrition Intervention Change Diet Order: Cardiac/Consistent CHO Add Supplement/Snack (indicate name/kcal Glucerna 1 daily /protein ) Provides kCal: 220 Provides Protein (gm) 10 Goal #1 Meet at least 75% of calorie and protein needs via PO and ONS intakes Anticipated Discharge Needs: Cardiac/Consistent CHO Follow-Up By: 11/24/18 Additional Comments Follow for PO and ONS intakes
[2018-11-20] MEDS ORDERED: NACL 0.9% 500 ML 500 ML IV ONE (12:45)
[2018-11-20] MEDS: MILK OF MAGNESIA PO PRN (18:50)
[2018-11-21 06:01] LABS: Calcium 8.7 mg/dL (8.4-10.2)
[2018-11-21] MEDS: APRESOLINE PO SCH ×3 (07:03→21:40)
[2018-11-21] MEDS: HumaLOG SUB-Q SCH ×4 (08:26→22:23)
[2018-11-21] MEDS: COLACE PO SCH ×2 (09:32→21:40)
[2018-11-21] MEDS: ASPIRIN PO SCH (09:32)
[2018-11-21] MEDS: SODIUM CHLORIDE FLUSH SYRINGE 10 ML IV SCH ×2 (09:32→22:15)
[2018-11-21] MEDS: NORVASC PO SCH (09:32)
[2018-11-21] MEDS: HEPARIN SUB-Q SCH ×2 (09:33→21:41)
[2018-11-21] MEDS: LANTUS SUB-Q SCH (09:38)
--- NOTE | 2018-11-21 10:06 | Progress Note ---
Assessment and Plan 1. Syncope probably secondary to medication 2. Essential hypertension 3. Type 2 diabetes mellitus Plan. Cardiac-agarwal stable decrease dose of amlodipine follow-up as an outpatient for stress thallium and event monitor. Subjective Date of service: 11/21/18 Interval history: No cardiac symptoms Objective Vital Signs Temp Pulse Pulse Resp BP BP BP 11/21/18 09:32 77 158/71 11/21/18 07:57 98.0 F 72 18 153/79 11/21/18 07:03 79 158/79 11/21/18 03:51 98.4 F 79 20 158/79 11/20/18 21:47 166/82 11/20/18 21:08 73 166/82 11/20/18 20:14 98.0 F 20 166/82 11/20/18 20:00 98 F 80 20 160/84 11/20/18 16:20 87 136/66 11/20/18 16:17 74 152/77 11/20/18 14:46 73 141/71 11/20/18 14:41 98.2 F 73 20 141/71 Pulse Ox 11/21/18 09:32 11/21/18 07:57 100 11/21/18 07:03 11/21/18 03:51 97 11/20/18 21:47 11/20/18 21:08 11/20/18 20:14 11/20/18 20:00 98 11/20/18 16:20 98 11/20/18 16:17 99 11/20/18 14:46 11/20/18 14:41 99 - Physical Examination General: No Apparent Distress HEENT: Positive: PERRL Neck: Positive: trachea midline Cardiac: Positive: Regular Rate, S1/S2, PMI, Laterally Displaced Lungs: Positive: clear to auscultation, No Wheeze, Rales, Rhonchi Neuro: Positive: Grossly Intact Abdomen: Positive: Unremarkable, Active Bowel Sounds Extremities: Absent: edema - Labs and Meds Comprehensive Metabolic Panel 11/21/18 Range/Units 04:54 Sodium 143 (137-145) mmol/L Potassium 4.1 (3.6-5.0) mmol/L Chloride 106.5 (98-107) mmol/L Carbon Dioxide 25 (22-30) mmol/L BUN 15 (9-20) mg/dL Creatinine 1.4 (0.8-1.5) mg/dL Glucose 154 H (75-100) mg/dL Calcium 8.7 (8.4-10.2) mg/dL
[2018-11-21] MEDS: MIRALAX 3350 PO PRN (10:32)
[2018-11-21] MEDS: NACL 0.9% 1000 ML 1,000 ML IV SCH ×2 (10:32→19:51)
[2018-11-21] MEDS ORDERED: APRESOLINE PO SCH (23:27)
[2018-11-22] MEDS: MILK OF MAGNESIA PO PRN (04:34)
[2018-11-22] MEDS: NACL 0.9% 1000 ML 1,000 ML IV SCH ×2 (04:35→18:35)
[2018-11-22] MEDS: APRESOLINE PO SCH ×2 (06:42→16:17)
--- NOTE | 2018-11-22 09:07 | Progress Note ---
Assessment and Plan 1. Syncope probably secondary to medication 2. Essential hypertension 3. Type 2 diabetes mellitus 4. Equivocal elevation of serum troponin levels ocuuring in the setting of [place] 5. [place] resolving with hydration 6. Elevated D-dimer levels Plan. Cardiac-agarwal stable. Workup of elevated D-dimer levels as per PCP. Echocardiogram shows normal LV size and function. Further cardiac workup i.e stress MPI can be done as an outpatient. Subjective Date of service: 11/22/18 Interval history: No cardiac symptoms Objective Vital Signs Temp Pulse Resp BP BP Pulse Ox 11/22/18 08:42 18 11/22/18 07:37 98.0 F 74 20 144/72 98 11/22/18 02:11 83 132/57 99 11/22/18 02:00 96 H 21 106/58 95 11/22/18 01:12 82 186/83 11/21/18 21:40 186/83 11/21/18 19:44 82 184/83 99 11/21/18 16:28 148/64 11/21/18 16:27 134/64 11/21/18 16:25 168/85 11/21/18 14:14 153/66 11/21/18 14:13 74 153/66 11/21/18 10:40 75 181/84 100 11/21/18 10:00 78 11/21/18 09:32 77 158/71 11/21/18 09:31 77 158/71 99 - Physical Examination General: No Apparent Distress HEENT: Positive: PERRL Neck: Positive: trachea midline Cardiac: Positive: Regular Rate, S1/S2, PMI, Laterally Displaced. Negative: S3, S4 Lungs: Positive: clear to auscultation, No Wheeze, Rales, Rhonchi Neuro: Positive: Grossly Intact Abdomen: Positive: Unremarkable, Active Bowel Sounds Extremities: Absent: edema
[2018-11-22] MEDS: ASPIRIN PO SCH (09:34)
[2018-11-22] MEDS: HEPARIN SUB-Q SCH ×2 (09:34→21:45)
[2018-11-22] MEDS: COLACE PO SCH ×2 (09:34→21:42)
[2018-11-22] MEDS: LANTUS SUB-Q SCH (09:34)
[2018-11-22] MEDS: NORVASC PO SCH (09:41)
[2018-11-22] MEDS: SODIUM CHLORIDE FLUSH SYRINGE 10 ML IV SCH ×2 (09:42→21:47)
[2018-11-22] MEDS: HumaLOG SUB-Q SCH ×3 (09:43→17:45)
--- NOTE | 2018-11-22 11:24 | Progress Note ---
Assessment and Plan Assessment and plan: Syncope - due to Orthostasis -CT head negative -Further investigative testing with carotid duplex and echocardiogram -Orthostatic vitals still abnormal continue iv fluids Still not safe for discharge [place] -Improving -Probably vasomotor nephropathy -On IV fluid, will monitor creatinine level Dehydration cont iv fluids hyperensive urgency -On antihypertensives, adjust as needed Metabolic acidosis -Likely secondary to the renal impairment -On IV fluid, will monitor Elevated d-dimer -CTA chest negative for acute PE DM2 with hyperglycemia -On SSI and Lantus Dyslipidemia -On statin DVT prophylaxis with heparin History Interval history: Syncope Dizziness Sill abnormal orthostatic vitals Hospitalist Physical - Physical exam Narrative exam: Gen: Not in acute distress, lying in bed, HEENT: Normocephalic, atraumatic Neck: supple, no JVD Heart: S1 and S2 reg, no murmurs, rubs or gallop Lungs: Clear, no crackles, no wheeze Abd: soft, non tender, non distended, normal BS Ext: No edema, no clubbing, no cyanosis, Neuro: Awake,alert, oriented x 3, moves all ext, non focal Psych:Normal mood - Constitutional Vitals: Temp Pulse Resp BP Pulse Ox 98.0 F 73 18 165/78 98 11/22/18 07:37 11/22/18 09:41 11/22/18 08:42 11/22/18 09:41 11/22/18 07:37 General appearance: Present: no acute distress Results - Labs CBC & Chem 7: 11/18/18 18:11 11/21/18 04:54 Labs: Laboratory Last Values WBC 8.6 K/mm3 (4.5-11.0) 11/18/18 18:11 RBC 3.15 M/mm3 (3.65-5.03) L 11/18/18 18:11 Hgb 10.2 gm/dl (11.8-15.2) L 11/18/18 18:11 Hct 30.2 % (35.5-45.6) L 11/18/18 18:11 MCV 96 fl (84-94) H 11/18/18 18:11 MCH 32 pg (28-32) 11/18/18 18:11 MCHC 34 % (32-34) 11/18/18 18:11 RDW 12.9 % (13.2-15.2) L 11/18/18 18:11 Plt Count 382 K/mm3 (140-440) 11/18/18 18:11 Lymph % (Auto) 15.3 % (13.4-35.0) 11/18/18 18:11 [place] % (Auto) 4.0 % (0.0-7.3) 11/18/18 18:11 Eos % (Auto) 0.4 % (0.0-4.3) 11/18/18 18:11 Baso % (Auto) 1.2 % (0.0-1.8) 11/18/18 18:11 Lymph # 1.3 K/mm3 (1.2-5.4) 11/18/18 18:11 [place] # 0.3 K/mm3 (0.0-0.8) 11/18/18 18:11 Eos # 0.0 K/mm3 (0.0-0.4) 11/18/18 18:11 Baso # 0.1 K/mm3 (0.0-0.1) 11/18/18 18:11 Seg Neutrophils % 79.1 % (40.0-70.0) H 11/18/18 18:11 Seg Neutrophils # 6.8 K/mm3 (1.8-7.7) 11/18/18 18:11 456.98 ng/mlDDU (0-234) H 11/18/18 18:11 Sodium 143 mmol/L (137-145) 11/21/18 04:54 Potassium 4.1 mmol/L (3.6-5.0) 11/21/18 04:54 Chloride 106.5 mmol/L (98-107) 11/21/18 04:54 Carbon Dioxide 25 mmol/L (22-30) 11/21/18 04:54 16 mmol/L 11/21/18 04:54 BUN 15 mg/dL (9-20) 11/21/18 04:54 1.4 mg/dL (0.8-1.5) 11/21/18 04:54 Estimated GFR 60 ml/min 11/21/18 04:54 11 % 11/21/18 04:54 Glucose 154 mg/dL (75-100) H 11/21/18 04:54 POC Glucose 171 (70-105) H 11/22/18 07:40 Calcium 8.7 mg/dL (8.4-10.2) 11/21/18 04:54 0.40 mg/dL (0.1-1.2) 11/18/18 18:11 AST 11 units/L (5-40) 11/18/18 18:11 ALT 11 units/L (7-56) 11/18/18 18:11 48 units/L (35-129) 11/18/18 18:11 112 units/L (55-170) 11/18/18 18:11 CK-MB (CK-2) 3.3 ng/mL (0.0-4.0) 11/18/18 18:11 CK-MB (CK-2) Rel Index 2.9 (0-4) 11/18/18 18:11 0.070 ng/mL (0.00-0.029) H 11/19/18 05:04 7.4 g/dL (6.3-8.2) 11/18/18 18:11 3.6 g/dL (3.9-5) L 11/18/18 18:11 0.9 % 11/18/18 18:11 Triglycerides 157 mg/dL (2-149) H 11/18/18 18:11 Cholesterol 235 mg/dL (50-199) H 11/18/18 18:11 187 mg/dL (50-130) H 11/18/18 18:11 32 mg/dL (40-59) L 11/18/18 18:11 7.34 % 11/18/18 18:11 Yellow (Yellow) 11/18/18 20:54 Clear (Clear) 11/18/18 20:54 6.0 (5.0-7.0) 11/18/18 20:54 Ur Specific [place] 1.016 (1.003-1.030) 11/18/18 20:54 100 mg/dl mg/dL (Negative) 11/18/18 20:54 Neg mg/dL (Negative) 11/18/18 20:54 Neg mg/dL (Negative) 11/18/18 20:54 Sm (Negative) 11/18/18 20:54 Neg (Negative) 11/18/18 20:54 Neg (Negative) 11/18/18 20:54 2.0 mg/dL (<2.0) 11/18/18 20:54 Ur Leukocyte Esterase Neg (Negative) 11/18/18 20:54 3.0 /HPF (0.0-6.0) 11/18/18 20:54 2.0 /HPF (0.0-6.0) 11/18/18 20:54 U Epithel Cells (Auto) 3.0 /HPF (0-13.0) 11/18/18 20:54 Few /HPF 11/18/18 20:54 Active Medications - Current Medications Current Medications: Generic Name Dose Route Start Last Admin Trade Name Freq PRN Reason Stop Dose Admin Acetaminophen 650 mg 11/18/18 23:14 11/20/18 00:40 Tylenol PO 650 mg Q4H PRN Administration Pain MILD(1-3)/Fever >100.5/SAMANIEGO Amlodipine Besylate 10 mg 11/18/18 23:17 11/22/18 09:41 Norvasc PO 10 mg QDAY PATRCIK Administration Aspirin 325 mg 11/19/18 10:00 11/22/18 09:34 Aspirin PO 325 mg QDAY PATRICK Administration Atorvastatin Calcium 40 mg 11/19/18 22:00 11/21/18 21:39 Lipitor PO 40 mg QHS PATRICK Administration Dextrose 50 ml 11/18/18 23:19 D50w (25gm) Syringe IV PRN PRN Hypoglycemia Docusate Sodium 100 mg 11/19/18 10:00 11/22/18 09:34 Colace PO 100 mg BID PATRICK Administration Heparin Sodium (Porcine) 5,000 unit 11/19/18 10:00 11/22/18 09:34 Heparin SUB-Q 5,000 unit Q12HR PATRICK Administration Hydralazine HCl 10 mg 11/18/18 23:17 11/22/18 01:12 Apresoline IV 10 mg Q4H PRN Administration Blood Pressure Hydralazine HCl 100 mg 11/22/18 06:00 11/22/18 06:42 Apresoline PO Not Given Q8HR PATRICK Sodium Chloride 1,000 mls @ 200 mls/hr 11/18/18 23:45 11/22/18 04:35 Nacl 0.9% 1000 Ml IV 125 mls/hr DIRECT PATRICK Administration Insulin Glargine 15 units 11/19/18 10:00 11/22/18 09:34 Lantus SUB-Q 15 units DAILY PATRICK Administration Insulin Human Lispro 0 unit 11/19/18 07:30 11/22/18 09:43 Humalog SUB-Q 2 unit ACHS PATRICK Administration Protocol Magnesium Hydroxide 30 ml 11/19/18 23:28 11/22/18 04:34 Milk Of Magnesia PO 30 ml QDAY PRN Administration Constipation Ondansetron HCl 4 mg 11/18/18 23:14 11/19/18 05:19 Zofran IV 4 mg Q8H PRN Administration Nausea And Vomiting Oxycodone/Acetaminophen 1 tab 11/18/18 23:14 11/22/18 04:28 Percocet 5/325 PO 1 tab Q6H PRN Administration Pain, Moderate (4-6) Polyethylene Glycol 17 gm 11/19/18 23:28 11/21/18 10:32 Miralax 3350 PO 17 gm QDAY PRN Administration Constipation Sodium Chloride 10 ml 11/19/18 10:00 11/22/18 09:42 Sodium Chloride Flush Syringe 10 Ml IV 10 ml BID PATRICK Administration Sodium Chloride 10 ml 11/18/18 23:14 Sodium Chloride Flush Syringe 10 Ml IV PRN PRN LINE FLUSH Nutrition/Malnutrition Assess - Dietary Evaluation Nutrition/Malnutrition Findings: Nutrition Notes Start: 11/19/18 16:54 Freq: Status: Active Protocol: Document 11/19/18 16:54 RM (Rec: 11/19/18 17:02 RM [id number]) Nutrition Notes Need for Assessment generated from: [facility] Initial or Follow up Assessment Current Diagnosis Acute Kidney Injury,Diabetes, Hypertension Other Pertinent Diagnosis Dyslipidemia Current Diet Consistent CHO Labs/Tests Reviewed Pertinent Medications Reviewed Height 6 ft Weight 92.8 kg Usual Body Weight 96.82 kg [place] Body Weight (kg) 80.90 BMI 27.7 Weight change and time frame 4.15% wt loss X 3 weeks Subjective/Other Information Screened for malnutrition. 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 Stated that he ate 1/3 of his breakfast this morning. Admitted to vomiting once. Stated UBW was 213 lbs 3 weeks ago. No temporal or orbital wasting . Percent of energy/protein needs met: 32%/32% Burn Absent Trauma Absent #1 Nutrition Diagnosis Inadequate oral intake Etiology decreased appetite As Evidenced by Signs and Symptoms pt statement that he ate 1/3 of his breakfast Is patient on ventilator? No Is Patient Ambulatory and/or Out of Bed Yes REE-([facility]-ambulatory/OOB) [ 2204.800 NUTR.MSJOOB] Calculation Used for Recommendations [facility] Additional Notes Protein Needs: 93-111g (1-1.2g /kg) Fluid Needs: 1 ml/kcal Nutrition Intervention Change Diet Order: Cardiac/Consistent CHO Add Supplement/Snack (indicate name/kcal Glucerna 1 daily /protein ) Provides kCal: 220 Provides Protein (gm) 10 Goal #1 Meet at least 75% of calorie and protein needs via PO and ONS intakes Anticipated Discharge Needs: Cardiac/Consistent CHO Follow-Up By: 11/24/18 Additional Comments Follow for PO and ONS intakes
[2018-11-22] MEDS ORDERED: NACL 0.9% 1000 ML 1,000 ML IV SCH ×2 (14:00→19:00)
--- NOTE | 2018-11-22 15:15 | Progress Note ---
Assessment and Plan Assessment and plan: Syncope - due to Orthostasis -CT head negative -Further investigative testing with carotid duplex and echocardiogram -Orthostatic vitals still abnormal, big drop on lying to sitting and standing. continue iv fluids Still not safe for discharge [place] -Improving -Probably vasomotor nephropathy -On IV fluid, will monitor creatinine level Dehydration cont iv fluids hyperensive urgency -On antihypertensives, adjust as needed Metabolic acidosis -Likely secondary to the renal impairment -On IV fluid, will monitor Elevated d-dimer -CTA chest negative for acute PE DM2 with hyperglycemia -On SSI and Lantus Dyslipidemia -On statin DVT prophylaxis with heparin History Interval history: Syncope Dizziness Sill abnormal orthostatic vitals Hospitalist Physical - Physical exam Narrative exam: Gen: Not in acute distress, lying in bed, HEENT: Normocephalic, atraumatic Neck: supple, no JVD Heart: S1 and S2 reg, no murmurs, rubs or gallop Lungs: Clear, no crackles, no wheeze Abd: soft, non tender, non distended, normal BS Ext: No edema, no clubbing, no cyanosis, Neuro: Awake,alert, oriented x 3, moves all ext, non focal Psych:Normal mood - Constitutional Vitals: Temp Pulse Resp BP Pulse Ox 98.0 F 78 18 165/78 98 11/22/18 07:37 11/22/18 10:00 11/22/18 08:42 11/22/18 09:41 11/22/18 07:37 General appearance: Present: no acute distress Results - Labs CBC & Chem 7: 11/18/18 18:11 11/21/18 04:54 Labs: Laboratory Last Values WBC 8.6 K/mm3 (4.5-11.0) 11/18/18 18:11 RBC 3.15 M/mm3 (3.65-5.03) L 11/18/18 18:11 Hgb 10.2 gm/dl (11.8-15.2) L 11/18/18 18:11 Hct 30.2 % (35.5-45.6) L 11/18/18 18:11 MCV 96 fl (84-94) H 11/18/18 18:11 MCH 32 pg (28-32) 11/18/18 18:11 MCHC 34 % (32-34) 11/18/18 18:11 RDW 12.9 % (13.2-15.2) L 11/18/18 18:11 Plt Count 382 K/mm3 (140-440) 11/18/18 18:11 Lymph % (Auto) 15.3 % (13.4-35.0) 11/18/18 18:11 [place] % (Auto) 4.0 % (0.0-7.3) 11/18/18 18:11 Eos % (Auto) 0.4 % (0.0-4.3) 11/18/18 18:11 Baso % (Auto) 1.2 % (0.0-1.8) 11/18/18 18:11 Lymph # 1.3 K/mm3 (1.2-5.4) 11/18/18 18:11 [place] # 0.3 K/mm3 (0.0-0.8) 11/18/18 18:11 Eos # 0.0 K/mm3 (0.0-0.4) 11/18/18 18:11 Baso # 0.1 K/mm3 (0.0-0.1) 11/18/18 18:11 Seg Neutrophils % 79.1 % (40.0-70.0) H 11/18/18 18:11 Seg Neutrophils # 6.8 K/mm3 (1.8-7.7) 11/18/18 18:11 456.98 ng/mlDDU (0-234) H 11/18/18 18:11 Sodium 143 mmol/L (137-145) 11/21/18 04:54 Potassium 4.1 mmol/L (3.6-5.0) 11/21/18 04:54 Chloride 106.5 mmol/L (98-107) 11/21/18 04:54 Carbon Dioxide 25 mmol/L (22-30) 11/21/18 04:54 16 mmol/L 11/21/18 04:54 BUN 15 mg/dL (9-20) 11/21/18 04:54 1.4 mg/dL (0.8-1.5) 11/21/18 04:54 Estimated GFR 60 ml/min 11/21/18 04:54 11 % 11/21/18 04:54 Glucose 154 mg/dL (75-100) H 11/21/18 04:54 POC Glucose 133 (70-105) H 11/22/18 11:43 Calcium 8.7 mg/dL (8.4-10.2) 11/21/18 04:54 0.40 mg/dL (0.1-1.2) 11/18/18 18:11 AST 11 units/L (5-40) 11/18/18 18:11 ALT 11 units/L (7-56) 11/18/18 18:11 48 units/L (35-129) 11/18/18 18:11 112 units/L (55-170) 11/18/18 18:11 CK-MB (CK-2) 3.3 ng/mL (0.0-4.0) 11/18/18 18:11 CK-MB (CK-2) Rel Index 2.9 (0-4) 11/18/18 18:11 0.070 ng/mL (0.00-0.029) H 11/19/18 05:04 7.4 g/dL (6.3-8.2) 11/18/18 18:11 3.6 g/dL (3.9-5) L 11/18/18 18:11 0.9 % 11/18/18 18:11 Triglycerides 157 mg/dL (2-149) H 11/18/18 18:11 Cholesterol 235 mg/dL (50-199) H 11/18/18 18:11 187 mg/dL (50-130) H 11/18/18 18:11 32 mg/dL (40-59) L 11/18/18 18:11 7.34 % 11/18/18 18:11 Yellow (Yellow) 11/18/18 20:54 Clear (Clear) 11/18/18 20:54 6.0 (5.0-7.0) 11/18/18 20:54 Ur Specific [place] 1.016 (1.003-1.030) 11/18/18 20:54 100 mg/dl mg/dL (Negative) 11/18/18 20:54 Neg mg/dL (Negative) 11/18/18 20:54 Neg mg/dL (Negative) 11/18/18 20:54 Sm (Negative) 11/18/18 20:54 Neg (Negative) 11/18/18 20:54 Neg (Negative) 11/18/18 20:54 2.0 mg/dL (<2.0) 11/18/18 20:54 Ur Leukocyte Esterase Neg (Negative) 11/18/18 20:54 3.0 /HPF (0.0-6.0) 11/18/18 20:54 2.0 /HPF (0.0-6.0) 11/18/18 20:54 U Epithel Cells (Auto) 3.0 /HPF (0-13.0) 11/18/18 20:54 Few /HPF 11/18/18 20:54 Active Medications - Current Medications Current Medications: Generic Name Dose Route Start Last Admin Trade Name Freq PRN Reason Stop Dose Admin Acetaminophen 650 mg 11/18/18 23:14 11/20/18 00:40 Tylenol PO 650 mg Q4H PRN Administration Pain MILD(1-3)/Fever >100.5/SAMANIEGO Amlodipine Besylate 10 mg 11/18/18 23:17 11/22/18 09:41 Norvasc PO 10 mg QDAY PATRICK Administration Aspirin 325 mg 11/19/18 10:00 11/22/18 09:34 Aspirin PO 325 mg QDAY PATRICK Administration Atorvastatin Calcium 40 mg 11/19/18 22:00 11/21/18 21:39 Lipitor PO 40 mg QHS PATRICK Administration Dextrose 50 ml 11/18/18 23:19 D50w (25gm) Syringe IV PRN PRN Hypoglycemia Docusate Sodium 100 mg 11/19/18 10:00 11/22/18 09:34 Colace PO 100 mg BID PATRICK Administration Heparin Sodium (Porcine) 5,000 unit 11/19/18 10:00 11/22/18 09:34 Heparin SUB-Q 5,000 unit Q12HR PATRICK Administration Hydralazine HCl 10 mg 11/18/18 23:17 11/22/18 01:12 Apresoline IV 10 mg Q4H PRN Administration Blood Pressure Hydralazine HCl 100 mg 11/22/18 06:00 11/22/18 06:42 Apresoline PO Not Given Q8HR PATRICK Sodium Chloride 1,000 mls @ 200 mls/hr 11/18/18 23:45 11/22/18 04:35 Nacl 0.9% 1000 Ml IV 125 mls/hr DIRECT PATRICK Administration Sodium Chloride 1,000 mls @ 999 mls/hr 11/22/18 14:00 Nacl 0.9% 1000 Ml IV 11/23/18 15:01 ONCE PATRICK Insulin Glargine 15 units 11/19/18 10:00 11/22/18 09:34 Lantus SUB-Q 15 units DAILY PATRICK Administration Insulin Human Lispro 0 unit 11/19/18 07:30 11/22/18 15:05 Humalog SUB-Q Not Given ACHS COUNTS INCLUDE 234 BEDS AT [facility] Protocol Magnesium Hydroxide 30 ml 11/19/18 23:28 11/22/18 04:34 Milk Of Magnesia PO 30 ml QDAY PRN Administration Constipation Ondansetron HCl 4 mg 11/18/18 23:14 11/19/18 05:19 Zofran IV 4 mg Q8H PRN Administration Nausea And Vomiting Oxycodone/Acetaminophen 1 tab 11/18/18 23:14 11/22/18 04:28 Percocet 5/325 PO 1 tab Q6H PRN Administration Pain, Moderate (4-6) Polyethylene Glycol 17 gm 11/19/18 23:28 11/21/18 10:32 Miralax 3350 PO 17 gm QDAY PRN Administration Constipation Sodium Chloride 10 ml 11/19/18 10:00 11/22/18 09:42 Sodium Chloride Flush Syringe 10 Ml IV 10 ml BID PATRICK Administration Sodium Chloride 10 ml 11/18/18 23:14 Sodium Chloride Flush Syringe 10 Ml IV PRN PRN LINE FLUSH Nutrition/Malnutrition Assess - Dietary Evaluation Nutrition/Malnutrition Findings: Nutrition Notes Start: 11/19/18 16:54 Freq: Status: Active Protocol: Document 11/19/18 16:54 RM (Rec: 11/19/18 17:02 [id number]) Nutrition Notes Need for Assessment generated from: [facility] Initial or Follow up Assessment Current Diagnosis Acute Kidney Injury,Diabetes, Hypertension Other Pertinent Diagnosis Dyslipidemia Current Diet Consistent CHO Labs/Tests Reviewed Pertinent Medications Reviewed Height 6 ft Weight 92.8 kg Usual Body Weight 96.82 kg [place] Body Weight (kg) 80.90 BMI 27.7 Weight change and time frame 4.15% wt loss X 3 weeks Subjective/Other Information Screened for malnutrition. 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 Stated that he ate 1/3 of his breakfast this morning. Admitted to vomiting once. Stated UBW was 213 lbs 3 weeks ago. No temporal or orbital wasting . Percent of energy/protein needs met: 32%/32% Burn Absent Trauma Absent #1 Nutrition Diagnosis Inadequate oral intake Etiology decreased appetite As Evidenced by Signs and Symptoms pt statement that he ate 1/3 of his breakfast Is patient on ventilator? No Is Patient Ambulatory and/or Out of Bed Yes REE-([facility]-ambulatory/OOB) [ 2204.800 NUTR.MSJOOB] Calculation Used for Recommendations [facility] Additional Notes Protein Needs: 93-111g (1-1.2g /kg) Fluid Needs: 1 ml/kcal Nutrition Intervention Change Diet Order: Cardiac/Consistent CHO Add Supplement/Snack (indicate name/kcal Glucerna 1 daily /protein ) Provides kCal: 220 Provides Protein (gm) 10 Goal #1 Meet at least 75% of calorie and protein needs via PO and ONS intakes Anticipated Discharge Needs: Cardiac/Consistent CHO Follow-Up By: 11/24/18 Additional Comments Follow for PO and ONS intakes
[2018-11-22] MEDS ORDERED: CEPHULAC PO ONE (18:19)
--- NOTE | 2018-11-22 19:33 | XRay Report ---
PROCEDURE: XR ABDOMEN 1V AP TECHNIQUE: Abdominal radiograph, single view. HISTORY: vomiting COMPARISONS: None . FINDINGS: Bowel gas pattern: Nonobstructive . Masses or calcifications: None . 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 Bony structures: No significant abnormality . Other: None . IMPRESSION: No acute abnormality. This document is electronically signed by Josselyn Cordova MD., Nov 22 2018 07:30:58 PM ET
[2018-11-22] MEDS: ZOFRAN IV PRN (22:11)
[2018-11-23] MEDS: HumaLOG SUB-Q SCH ×3 (00:51→14:28)
[2018-11-23] MEDS: APRESOLINE PO SCH ×3 (00:51→14:28)
[2018-11-23] MEDS ORDERED: CEPHULAC PO ONE (09:15)
[2018-11-23] MEDS: HEPARIN SUB-Q SCH (10:15)
[2018-11-23] MEDS: NORVASC PO SCH (10:15)
[2018-11-23] MEDS: COLACE PO SCH (10:15)
[2018-11-23] MEDS: ASPIRIN PO SCH (10:17)
[2018-11-23] MEDS: LANTUS SUB-Q SCH (10:17)
[2018-11-23] MEDS: SODIUM CHLORIDE FLUSH SYRINGE 10 ML IV SCH (10:18)
[2018-11-23 10:24] VITALS: BP 153/67
--- NOTE | 2018-11-23 10:28 | Progress Note ---
Assessment and Plan 1. Syncope probably secondary to medication 2. Essential hypertension 3. Type 2 diabetes mellitus with peripheral neuropathy 4. Equivocal elevation of serum troponin levels ocuuring in the setting of [place] 5. [place] resolving with hydration 6. Elevated D-dimer levels 7. Orthostatic hypotension rule out autonomic dysfunction Plan. Cardiac-agarwal stable. Patient's orthostasis is much better will recommend conservative management for now. Echocardiogram shows normal LV size and function. Further cardiac workup i.e stress MPI can be done as an outpatient. Subjective Date of service: 11/23/18 Interval history: No cardiac symptoms but still is orthostatic despite IV fluids for intravascular expansion Objective Vital Signs Temp Pulse Pulse Resp BP BP Pulse Ox 11/23/18 08:56 90 22 121/61 97 11/23/18 08:53 82 20 148/78 100 11/23/18 08:01 97.9 F 82 20 153/67 98 11/23/18 08:00 78 18 11/22/18 19:40 80 98 11/22/18 19:37 98.1 F 20 119/67 11/22/18 18:16 126/66 11/22/18 13:19 76 20 154/87 99 - Physical Examination General: No Apparent Distress HEENT: Positive: PERRL Neck: Positive: trachea midline Cardiac: Positive: Regular Rate, S1/S2, PMI, Laterally Displaced. Negative: S3, S4 Lungs: Positive: clear to auscultation, No Wheeze, Rales, Rhonchi Neuro: Positive: Grossly Intact Abdomen: Positive: Unremarkable, Active Bowel Sounds Extremities: Absent: edema
--- NOTE | 2018-11-23 12:26 | Discharge Summary ---
Providers - Providers Date of Admission: 11/18/18 23:14 Date of discharge: 11/23/18 Attending physician: JEAN-CLAUDE HUFF 11/19/18 10:50 Consult to Cardiology [CONS] Routine Consulting Provider: AR MURGUIA Reason For Exam: syncope, elevated troponin Primary care physician: CHIN ALBERTO Hospitalization Condition: Fair Hospital course: Patient is a 78-year-old male with history of hypertension and diabetes, who presented to the ED because of syncope. He denied chest pain, palpitation, shortness of breath, cough, fever, chills. He was seen and evaluated in Emergency Department. His Creatinine was 1.7. Troponin was borderline elevated. He was started on iv fluids and admitted, evaluated by cardiology. His orthostatic vitals were abnormal with more than 30mmhg drop in systolic on changing position. He was given iv fluids for several days. Repeated orthostatic vitals improved but was still abnormal. I discussed with Cardiology nad he stated patient probably has autonomic neuropathy from diabetes and may be discharged home follow as outpatient. i also discussed with patient and at bedside. he was subsequently discharged home to follow as outpatient. His Cr improved down to 1.4 on discharge. Syncope due to combination of dehydration, fluid depletion and autonomic neuropathy. He was advised no driving until daniel ared by physician. Total time spent on discharge, 32 mins Disposition: DC-01 TO HOME OR SELFCARE - Discharge Diagnoses (1) Autonomic neuropathy Status: Acute (2) Orthostasis Status: Acute (3) Hypertension Status: Acute (4) Volume depletion Status: Acute (5) Syncope Status: Acute Qualifiers: Syncope type: unspecified Qualified Code(s): R55 - Syncope and collapse (6) Dehydration Status: Acute (7) Metabolic acidosis Status: Acute (8) Diabetes mellitus type 2 in nonobese Status: Acute (9) Dyslipidemia Status: Acute Core Measure Documentation - Palliative Care Palliative Care/ Comfort Measures: Not Applicable - Core Measures Any of the following diagnoses?: none Exam - Constitutional Vitals: Temp Pulse Resp BP Pulse Ox 97.9 F 90 22 153/67 97 11/23/18 08:01 11/23/18 08:56 11/23/18 08:56 11/23/18 10:15 11/23/18 08:56 Plan Activity: no driving until cleared by PCP Diet: low fat, low cholesterol, low salt, diabetic Additional Instructions: 1.Follow up with PCP in 2-3 days. 2.Follow up with Cardiology in 1 week. 3.No driving until cleared by Physician. 4.Continue [place]o subcut as prescribed. Follow up with: CHIN ALBERTO MD [Primary Care Provider] - 7 Days Prescriptions: hydrALAZINE [Apresoline TAB] 100 mg PO Q8HR #90 tab
== END 2018-11-23 14:16 | disposition home or self-care (01) | DRG 73 ==
LOC: ED 16:39 → 2B-ACE 23:14
PROVIDERS: ADMIT Internal Medicine; ATTEND Internal Medicine
DX: G90.9 Disorder of the autonomic nervous system, unspecified (principal); N17.0 Acute kidney failure with tubular necrosis; E87.2 Acidosis; E86.0 Dehydration; I95.1 Orthostatic hypotension; I16.0 Hypertensive urgency; E78.5 Hyperlipidemia, unspecified; E11.65 Type 2 diabetes mellitus with hyperglycemia; N40.0 Benign prostatic hyperplasia without lower urinary tract symptoms; Z85.46 Personal history of malignant neoplasm of prostate; Z90.79 Acquired absence of other genital organ(s); Z90.49 Acquired absence of other specified parts of digestive tract; Z79.84 Long term (current) use of oral hypoglycemic drugs
CPT/HCPCS: 36415; 70450; 71045; 71275; 74018; 80048; 80053; 80061; 81001; 82550; 82553; 82962; 84484; 85025; 85379; 93005; 93010; 93306; 96361; 96374; G0378; A9270-GY; J0360; J1644; J1815; J2405; J7030; J7040; Q9967